=== PATIENT | male | born 1930 | race Caucasian/White ===

== ENCOUNTER 2016-07-01 02:47 | Emergency (ER) | payer MEDICARE ==
[2016-07-01 03:32] LABS: Hematocrit 43.3 % (35.5-45.6); Hemoglobin 14.4 gm/dl (11.8-15.2); Mean Corpuscular HGB Conc 33 % (32-34); Mean Corpuscular Hemoglobin 33 pg (28-32); Mean Corpuscular Volume 98 fl (84-94); Platelet Count 265 K/mm3 (140-440); Red Cell Distribution Width 14.4 % (13.2-15.2); White Blood Count 9.3 K/mm3 (4.5-11.0)
[2016-07-01 03:55] LABS: Anion Gap 18 mmol/L; BUN/Creatinine Ratio 35.71; Blood Urea Nitrogen 25 mg/dL (9-20); Calcium 9.3 mg/dL (8.4-10.2); Carbon Dioxide 25 mmol/L (22-30); Chloride 98.3 mmol/L (98-107); Glucose 142 mg/dL (75-100); Potassium 4.6 mmol/L (3.6-5.0); Sodium 137 mmol/L (137-145)
[2016-07-01 03:57] LABS: Creatine Kinase MB 2.9 ng/mL (0.0-4.0)
[2016-07-01 03:59] LABS: Creatine Kinase 78 units/L (55-170)
[2016-07-01 04:01] LABS: Bilirubin,Urine NEG (Negative); Blood,Urine SM (Negative); Ketones,Urine NEG (Negative); Leukocyte Esterase,Urine NEG (Negative); Mucus,Urine FEW /HPF; Nitrite,Urine NEG (Negative); Protein,Urine <15 mg/dL mg/dL (Negative); Urobilinogen,Urine < 2.0 mg/dL (<2.0)
--- NOTE | 2016-07-01 04:12 | Cat Scan Report ---
FINAL REPORT PROCEDURE: CT ABDOMEN PELVIS WO CON TECHNIQUE: Computerized axial tomography of the abdomen and pelvis was performed without intravenous contrast. This study is performed without intravascular contrast material and its sensitivity for abdominal and pelvic pathology, including neoplasms, inflammation, abscess, free fluid, thrombosis, arterial dissection and infarction, is reduced compared with a contrast enhanced study. HISTORY: unable to urinate or defecate x 2 days COMPARISON: 06/22/2013 FINDINGS: Visualized lower thorax: No significant abnormality. Liver: Normal size and attenuation. Spleen: Normal size and attenuation. Gallbladder and biliary system: Normal. Pancreas: Normal. Adrenals: Normal. Kidneys: Normal. GI tract: The stomach is normal. The small bowel has a normal caliber without obstruction, ileus or enteritis. There is moderate fecal debris throughout the colon. No inflammatory process. Constipation is suspected.. Lymph nodes and mesentery: Normal. Vasculature: Moderate atherosclerosis of the aorta and branching vessels. Bladder: There is a Messer catheter within the urinary bladder. Reproductive organs: Normal. Peritoneum: No free fluid. Musculoskeletal structures: No significant abnormality. Other: None. IMPRESSION: There is no evidence of intestinal or urinary tract obstruction. No ileus or enteritis. Moderate fecal debris throughout the colon is consistent with constipation..
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
[2016-07-01 04:34] VITALS: BP 125/70
== END 2016-07-01 05:32 | disposition home or self-care (01) ==
LOC: ED 02:47
DX: R33.9 Retention of urine, unspecified (principal); K59.00 Constipation, unspecified; I10 Essential (primary) hypertension; E78.00 Pure hypercholesterolemia, unspecified; Z79.82 Long term (current) use of aspirin
CPT/HCPCS: 36415; 51702; 74176; 80048; 81001; 82550; 82553; 84484; 85027; 93005; 93010

== ENCOUNTER 2016-08-22 09:49 | Outpatient (CLI) | payer MEDICARE ==
--- NOTE | 2016-08-22 11:46 | Ultrasound Report ---
Testicular sonogram: History: Scrotal mass. Findings: Right testis measures 3.2 x 2.3 x 2.4 cm. Heterogeneous echo pattern. No significant abnormal color-flow. The head body and tail of the epididymis grossly appears unremarkable. Minimal hydrocele. Left testes measures 3 x 2 x 3.2 cm. A heterogeneous echo pattern. Mild increase in color flow compared to the right testis. There is enlargement noted of the head, body and tail of the epididymis with increased color flow. There is circumscribed hyperechoic mass noted in the head of the epididymis measuring 0.5 x 0.3 x 0.6 cm. Left hydrocele. Impression: Mild bilateral hydrocele. Left epididymoorchitis with mass in the head of the epididymis may be inflammatory or noninflammatory.
--- NOTE | 2016-08-22 14:37 | Ultrasound Report ---
ULTRASOUND RENAL BILATERAL HISTORY: Renal mass. TECHNIQUE: transabdominal ultrasound with color Doppler interrogation. FINDINGS: Scans of the kidneys show normal renal contours. There is normal central calyceal clustering and good preservation of the cortical thickness. There is no evidence of mass or hydronephrosis. There are 1 or 2 scattered simple appearing cysts in both kidneys. The views of the bladder and the region of the ureters appear normal. IMPRESSION: Bilateral renal cysts. No renal mass or obstructive uropathy.
== END 2016-08-22 09:50 | disposition home or self-care (01) ==
LOC: US 09:49
PROVIDERS: ATTEND Urology
DX: N28.1 Cyst of kidney, acquired (principal); N50.89 Other specified disorders of the male genital organs; N43.3 Hydrocele, unspecified; N45.3 Epididymo-orchitis; I10 Essential (primary) hypertension; K27.9 Peptic ulcer, site unspecified, unspecified as acute or chronic, without hemorrhage or perforation
CPT/HCPCS: 76770; 93975